=== PATIENT | female | born 1950 | race American Indian/Alaskan Native ===

== ENCOUNTER 2016-03-28 17:45 | Emergency (ER) | payer MEDICARE ==
--- NOTE | 2016-03-28 18:05 | Emergency Department Report ---
Chief Complaint: Chest Pain Stated Complaint: CHEST PAIN/MACRINA Time Seen by Provider: 03/28/16 17:59 - HPI History of Present Illness: Patient is a 65 y/o female with h/o asthma, HTN and type 2 diabetes who presents due to chest pain x 5 days. Patient c/o SOB at rest. Patient denies any vomiting, diaphoresis or arm pain. Patient states that she has had a cough for 5 days and the cough makes it worse. - ROS Review of Systems: see HPI - Exam Vital Signs: Vital Signs 03/28/16 17:48 Temperature 97.8 F Pulse Rate 107 H Respiratory 22 Rate Blood Pressure 181/96 O2 Sat by Pulse 100 Oximetry Physical Exam: PATIENT HAD BILATERAL RHONCHI, NO WHEEZING. CHEST PAIN WAS NOT REPRODUCIBLE MSE screening note: Focused history and physical exam performed. Due to findings the following was ordered: CHEST PAIN ORDER SET ED Disposition for MSE Condition: Stable
[2016-03-28 18:47] LABS: Basophils % (Auto) 0.6 % (0.0-1.8); Eosinophils % (Auto) 1.8 % (0.0-4.3); Hematocrit 39.1 % (30.3-42.9); Hemoglobin 12.6 gm/dl (10.1-14.3); Mean Corpuscular HGB Conc 32 % (30-34); Mean Corpuscular Hemoglobin 28 pg (28-32); Mean Corpuscular Volume 87 fl (79-97); Platelet Count 303 K/mm3 (140-440); Red Cell Distribution Width 13.9 % (13.2-15.2); White Blood Count 11.5 K/mm3 (4.5-11.0)
[2016-03-28 19:15] LABS: Alanine Aminotransferase 14 units/L (7-56); Alkaline Phosphatase 161 units/L (35-129); Bilirubin,Total 0.3 mg/dL (0.1-1.2); Blood Urea Nitrogen 14 mg/dL (7-17); Calcium 10.1 mg/dL (8.4-10.2); Carbon Dioxide 20 mmol/L (22-30); Chloride 101.9 mmol/L (98-107); Creatine Kinase 41 units/L (30-135); Glucose 294 mg/dL (65-100); Lipase 41 units/L (13-60); Potassium 4.6 mmol/L (3.6-5.0); Sodium 140 mmol/L (137-145); Total Protein 8.1 g/dL (6.3-8.2)
[2016-03-28 19:18] LABS: Bilirubin,Indirect 0.1 mg/dL; Creatine Kinase MB < 1.0 ng/mL (0.0-4.0)
[2016-03-28 19:22] LABS: Bilirubin,Direct < 0.2 mg/dL (0-0.2)
[2016-03-28 19:23] LABS: Anion Gap 23 mmol/L
[2016-03-28] MEDS ORDERED: NACL 0.9% 1000 ML 1,000 ML ONE (21:34)
[2016-03-28] MEDS ORDERED: CLEOCIN IV ONE (21:35)
[2016-03-28] MEDS ORDERED: TYLENOL ONE (21:36)
[2016-03-29] MEDS ORDERED: DUONEB 0.5 MG-3 MG/3 ML SOLN IH ONE (04:29)
--- NOTE | 2016-03-29 05:07 | XRay Report ---
FINAL REPORT PROCEDURE: XR CHEST ROUTINE 2V PA AND LATERAL TECHNIQUE: Two films obtained which are PA and lateral chest HISTORY: Chest Pain COMPARISON: No prior studies are available for comparison. FINDINGS: The mediastinal contour and heart size are normal. There is no pulmonary edema or pleural effusion. There is a small infiltrate and or small area of atelectasis in central right lower lobe. There is no evidence of focal finding in the lungs otherwise. There is no plain evidence of pneumothorax. IMPRESSION: 1. Small infiltrate or small area of atelectasis in right lower lobe. Short-term follow-up recommended to make sure this clears. 2. Otherwise negative.
[2016-03-29] MEDS ORDERED: LEVAQUIN 750MG/150ML 150 ML IV ONE (05:13)
--- NOTE | 2016-03-29 05:31 | Emergency Department Report ---
[id number] 65-year-old Afro-[place] female who presents to the emergency department from home with complaint of "I think it's my asthma." She says that she has been having a few days of mixed dry and productive cough and some shortness of breath. This morning she began having a little bit of chest pain but it resolved upon presentation into the waiting room. She denies any fever, back pain, diaphoresis, nausea, vomiting. She did not take anything for symptoms prior to presentation. No recent travel or sick contacts at home. She denies any history of GA, CVA, PE/DVT. She has a history of asthma, non- insulin-dependent diabetes and hypertension. Her primary care doctor is Dr. Cedric Gordon. ED Past Medical Hx - Past Medical History Previous Medical History?: Yes Hx Hypertension: Yes Hx Diabetes: Yes Hx Asthma: Yes Additional medical history: high cholesterol - Surgical History Past Surgical History?: Yes Additional Surgical History: hysterectomy - Social History Smoking Status: Former Smoker Substance Use Type: Non Opiate Pain, Prescribed - Medications Home Medications: Home Medications Medication Instructions Recorded Confirmed Last Taken Type HYDROcodone/APAP 5-325 [[place] 1 each PO Q6HR PRN #20 tablet 08/28/13 Unknown Rx 5/325] ALBUTEROL Inhaler [ProAir HFA 2 puff IH QID PRN #1 inhalation 03/29/16 Unknown Rx Inhaler] Levofloxacin [Levaquin] 750 mg PO QDAY #7 tablet 03/29/16 Unknown Rx predniSONE [Deltasone] 20 mg PO QDAY #5 tab 03/29/16 Unknown Rx ED Review of Systems ROS: Stated complaint: CHEST PAIN/MACRINA Other details as noted in HPI Comment: All other systems reviewed and negative Constitutional: denies: chills, fever Eyes: denies: eye pain, eye discharge, vision change ENT: denies: ear pain, throat pain Respiratory: cough, shortness of breath Cardiovascular: chest pain. denies: palpitations Gastrointestinal: denies: abdominal pain, nausea, diarrhea Genitourinary: denies: urgency, dysuria, discharge Musculoskeletal: denies: back pain, joint swelling, arthralgia Skin: denies: rash, lesions Neurological: denies: headache, weakness, paresthesias Physical Exam - Physical Exam Vital Signs: Vital Signs 03/28/16 03/29/16 03/29/16 17:48 03:52 04:29 Temperature 97.8 F Pulse Rate 107 H 81 87 Pulse Rate [ Throughout] Respiratory 22 18 18 Rate Respiratory Rate [ Throughout] Blood Pressure 181/96 Blood Pressure 155/83 145/74 [Right] O2 Sat by Pulse 100 98 99 Oximetry 03/29/16 03/29/16 04:51 05:01 Temperature Pulse Rate Pulse Rate [ 75 82 Throughout] Respiratory Rate Respiratory 16 20 Rate [ Throughout] Blood Pressure Blood Pressure [Right] O2 Sat by Pulse Oximetry Physical Exam: GENERAL: The patient is well-developed well-nourished. HEENT: Normocephalic. Atraumatic. Extraocular motions are intact. Patient has moist mucous membranes. Pupils equal reactive to light bilaterally. NECK: Supple. Trachea is midline. CHEST/LUNGS: Mild rhonchi heard to the right base. Mild wheezing throughout the chest. No cough heard during examination. No tachypnea or accessory muscle use. There is no respiratory distress noted. HEART/CARDIOVASCULAR: Regular. There is no tachycardia. There is no gallop rub or murmur. ABDOMEN: Abdomen is soft, nontender. Patient has normal bowel sounds. There is no abdominal distention. SKIN: There is no rash. There is no edema. There is no diaphoresis. NEURO: The patient is awake, alert, and oriented. The patient is cooperative. The patient has no focal neurologic deficits. The patient has normal speech. MUSCULOSKELETAL: There is no tenderness or deformity. There is no limitation range of motion. There is no evidence of acute injury. ED Course Vital Signs 03/28/16 03/29/16 03/29/16 17:48 03:52 04:29 Temperature 97.8 F Pulse Rate 107 H 81 87 Pulse Rate [ Throughout] Respiratory 22 18 18 Rate Respiratory Rate [ Throughout] Blood Pressure 181/96 Blood Pressure 155/83 145/74 [Right] O2 Sat by Pulse 100 98 99 Oximetry 03/29/16 03/29/16 04:51 05:01 Temperature Pulse Rate Pulse Rate [ 75 82 Throughout] Respiratory Rate Respiratory 16 20 Rate [ Throughout] Blood Pressure Blood Pressure [Right] O2 Sat by Pulse Oximetry ED Medical Decision Making - Lab Data Result diagrams: 03/28/16 18:31 03/28/16 18:31 - EKG Data -: EKG Interpreted by Ar EKG shows normal: sinus rhythm, axis, intervals, QRS complexes, ST-T waves Rate: normal - EKG Data When compared to previous EKG there are: previous EKG unavailable Interpretation: normal EKG - Radiology Data Radiology results: image reviewed interpreted by me: Chest x-ray shows a small infiltrate to the right lower lobe concerning for pneumonia. - Medical Decision Making 65-year-old female presents to the emergency department with a few days of cough and shortness of breath and wheezing and then one day of chest pain that began this morning and resolved upon presentation without intervention. Patient 's labs have been mostly unremarkable. She does have some hyperglycemia but it does not appear to be DKA or HHNK. Patient is on metformin and has not been able to take her nighttime dose. Her EKG is normal without any signs of ST elevation GA, dysrhythmia or ischemia. The rest the patient's labs are mostly unremarkable including negative troponins 3 and a normal d-dimer. A chest x- ray is done that shows concern for a possible small right lower lobe pneumonia. She was given IV Levaquin. Patient was given a dose of Solu-Medrol and a breathing treatment. Upon reevaluation she says she is feeling much better. There is been no return of her chest pain. She has a EL score that is less than 2. Patient has good follow-up with primary care. She'll be discharged home with antibiotics, course of steroids, an inhaler and a referral for cardiology for an outpatient stress test. She will return to the ER with any return of her chest pain, or any acute distress. Vital signs stable throughout her ED course including being afebrile. Since the patient is afebrile and there is no significant leukocytosis and no hypoxia, I believe the patient can be treated for her pneumonia on an outpatient basis. Blood sugar was rechecked and was about 3:30 so the patient was given 8 units of subcutaneous tenderness insulin. It may have elevated little better after being given a steroids. The patient has remained chest pain-free since it resolved in the waiting room. - Differential Diagnosis GA, pneumonia, PE, CHF Critical Care Time: No Critical care attestation.: If time is entered above; I have spent that time in minutes in the direct care of this critically ill patient, excluding procedure time. ED Disposition Clinical Impression: Hyperglycemia Hypertension Qualifiers: Hypertension type: essential hypertension Qualified Code(s): I10 - Essential ( primary) hypertension Pneumonia Qualifiers: Pneumonia type: due to unspecified organism Laterality: right Lung location: lower lobe of lung Qualified Code(s): J18.9 - Pneumonia, unspecified organism Chest pain Qualifiers: Chest pain type: unspecified Qualified Code(s): R07.9 - Chest pain, unspecified Disposition: DISCHARGED TO HOME OR SELFCARE Is pt being admited?: No Condition: Stable Instructions: Hypertension (ED), Chest Pain (ED), Community-acquired Pneumonia (ED), Diabetic Hyperglycemia (ED) Additional Instructions: Please follow-up with your primary care doctor the next few days. Return to the emergency department with any worsening of your symptoms or any acute distress. You've been given a referral for a local hand ii cutter, Dr. Moore, to follow up for an outpatient stress test. Take the antibiotics as prescribed. Try to stay away from foods that are high in salt and caffeinated products to help with her blood pressure. Try to stay away from foods that are high and starches, carbohydrates and sugars to help with your diabetes. Prescriptions: predniSONE [Deltasone] 20 mg PO QDAY #5 tab Levofloxacin [Levaquin] 750 mg PO QDAY #7 tablet ALBUTEROL Inhaler [ProAir HFA Inhaler] 2 puff IH QID PRN #1 inhalation PRN Reason: Shortness Of Breath Referrals: CEDRIC GORDON MD [Staff Physician] - 3-5 Days BARRY MOORE MD [Staff Physician] - 3-5 Days Time of Disposition: 05:35
[2016-03-29 06:15] VITALS: BP 128/63
== END 2016-03-29 07:03 | disposition home or self-care (01) ==
LOC: ED 17:45
DX: I10 Essential (primary) hypertension (principal); E11.65 Type 2 diabetes mellitus with hyperglycemia; J18.9 Pneumonia, unspecified organism; R07.9 Chest pain, unspecified; J45.909 Unspecified asthma, uncomplicated; E78.00 Pure hypercholesterolemia, unspecified; Z87.891 Personal history of nicotine dependence
CPT/HCPCS: 36415; 71020; 80053; 80074; 82550; 82553; 82962; 83690; 83880; 84484; 85025; 85379; 93005; 93010; 94640; 96365; 96366; 96372; 96375; 99285; J1956; J2930; J1815; J7030